=== PATIENT | male | born 1995 | race African-American/Black ===

== ENCOUNTER 2017-05-07 13:40 | Emergency (ER) | payer OTHER ==
[2017-05-07 19:12] LABS: CHLAMYDIA DNA AMPLIFICATION NEGATIVE (NEGATIVE); GC DNA AMPLIFICATION NEGATIVE (NEGATIVE)
== END 2017-05-07 17:27 | disposition home or self-care (01) ==
LOC: M ED 13:40
DX: S76.911A Strain of unspecified muscles, fascia and tendons at thigh level, right thigh, initial encounter (principal); X50.9XXA Other and unspecified overexertion or strenuous movements or postures, initial encounter; Y92.138 Other place on military base as the place of occurrence of the external cause
CPT/HCPCS: 76857